=== PATIENT | male | born 1990 | race Caucasian/White ===

== ENCOUNTER 2021-09-08 09:38 | Emergency (ER) | payer OTHER ==
[2021-09-08 10:56] LABS: BILIRUBIN 1+ mg/dL (NEGATIVE); BLOOD 2+ Ery/uL (NEGATIVE); CLARITY CLEAR (CLEAR); COLOR YELLOW (YELLOW); GLUCOSE (U) NORMAL (NORMAL); LEUKOCYTES NEGATIVE Leu/uL (NEGATIVE); NITRITE NEGATIVE (NEGATIVE); PROTEIN 2+ mg/dL (NEGATIVE); SPECIFIC GRAVITY >=1.030 (1.001-1.030); UROBILINOGEN 0.2 mg/dL (0.2-1.0)
[2021-09-08 10:59] LABS: ECSTASY (MDMA) POSITIVE (NEGATIVE); MARIJUANA (THC) NEGATIVE (NEGATIVE); METHADONE NEGATIVE (NEGATIVE); OPIATES NEGATIVE (NEGATIVE)
[2021-09-08 11:00] LABS: AMPHETAMINES POSITIVE (NEGATIVE); BARBITURATES NEGATIVE (NEGATIVE); OXYCODONE NEGATIVE (NEGATIVE)
[2021-09-08 11:05] LABS: BACTERIA 1+; MUCOUS LARGE
[2021-09-08 11:25] LABS: BASOPHIL 0.4 % (0-2); EOSINOPHIL 0.4 % (0-5); HCT 42.7 % (42.0-52.0); HGB 14.5 g/dl (13.2-18.0); LYMPHOCYTE 17.6 % (15-48); MCH 30.3 pg (25.0-31.0); MCV 89.1 fL (78.0-100.0); MONOCYTE 10.6 % (0-12); MPV 8.6 fL (6.0-9.5); NEUTROPHIL 70.6 % (41-80); NRBC 0; PLT 246 K/uL (150-400); RBC 4.79 M/uL (4.70-6.00); WBC 10.7 K/uL (4.0-10.5)
[2021-09-08 12:19] LABS: ALBUMIN 4.8 g/dL (3.4-5.0); ALKALINE PHOSHATASE 63 U/L (46-116); ALT 55 U/L (16-63); AST 90 U/L (15-37); BUN 21 mg/dL (7-18); BUN/CREAT RATIO (CALC) 22.6 RATIO; CHLORIDE 99 mmol/L (98-107); CO2 (BICARBONATE) 27 mmol/L (21-32); CREATININE 0.93 mg/dL (0.67-1.17); GLOBULIN (CALCULATION) 4.7 g/dL; GLUCOSE 93 mg/dL (74-106); TOTAL PROTEIN 9.5 g/dL (6.4-8.2)
[2021-09-08 12:20] LABS: ACETAMINOPHEN (TYLENOL) < 2.0 ug/mL (10.0-30.0)
== END 2021-09-08 15:23 | disposition other institution (70) ==
LOC: FER 09:38
PROVIDERS: Emergency Medicine
DX: R45.851 Suicidal ideations (principal); T18.2XXA Foreign body in stomach, initial encounter; F15.10 Other stimulant abuse, uncomplicated; F13.10 Sedative, hypnotic or anxiolytic abuse, uncomplicated; F20.9 Schizophrenia, unspecified; Z88.1 Allergy status to other antibiotic agents; Z20.822 Contact with and (suspected) exposure to COVID-19
CPT/HCPCS: 36415; 70490; 71045; 71250; 74018; 80053; 80305; 81001; 85025; G0480; J3360; J7030; U0002